=== PATIENT | female | born 1995 | race Caucasian/White ===

== ENCOUNTER → 2017-02-17 | Outpatient (CLI) | payer OTHER | LOC: MOB LAB 09:19 | PROVIDERS: ATTEND Family Medicine | DX: N91.2 Amenorrhea, unspecified (principal) | CPT/HCPCS: 36415; 84702 ==

== ENCOUNTER 2017-02-22 19:02 | Emergency (ER) | payer OTHER ==
[2017-02-22 19:22] VITALS: RESP 20; TEMP 97.6
--- NOTE | 2017-02-22 19:39 | EKG ---
[address] [address] Measurements Intervals [place] Rate: 77 P: 68 AR: 152 QRS: 75 QRSD: 117 T: 60 QT: 374 QTc: 405 Interpretive Statements SINUS RHYTHM INCOMPLETE RIGHT BUNDLE BRANCH BLOCK Compared to ECG 04/20/2016 15:09:05 Incomplete right bundle-branch block now present Electronically Signed On 02-23-17 13:30:27 MDT by Say Rosas [id number]
[2017-02-22 19:47] LABS: BASOPHILS # (AUTO) 0.02 10*3/UL; BASOPHILS % (AUTO) 0.2 % (0-1); EOSINOPHILS # (AUTO) 0.12 10*3/UL; EOSINOPHILS % (AUTO) 1.3 % (0-8); HEMATOCRIT 36.1 % (37.0-47.0); HEMOGLOBIN 12.1 g/dL (12.0-16.0); LYMPHOCYTES # (AUTO) 2.58 10*3/uL; MEAN CORPUSCULAR HEMOGLOBIN 29.5 PG (27-31); MEAN CORPUSCULAR HGB CONC 33.5 g/dL (33-37); MEAN PLATELET VOLUME 9.6 FL (7.4-12.2); MONOCYTES # (AUTO) 0.87 10*3/UL (0.3-0.8); MONOCYTES % (AUTO) 9.6 % (5-15); NEUTROPHILS # (AUTO) 5.45 10*3/UL; NEUTROPHILS % (AUTO) 60.2 % (50-80)
[2017-02-22] MEDS ORDERED: NORMAL SALINE 10 ML SYRINGE FLUSH IVP PRN (19:47)
[2017-02-22 19:48] LABS: PLATELET MORPHOLOGY COMMENT NORMAL MORPHOLOGY (NORM); RBC MORPHOLOGY COMMENT NORMAL MORPHOLOGY (NORM); WBC MORPHOLOGY COMMENT NORMAL MORPHOLOGY (NORM)
[2017-02-22 19:54] LABS: VENOUS PH 7.38 (7.32-7.42)
[2017-02-22 19:57] LABS: BLOOD UREA NITROGEN 16 mg/dL (7-22); CALCIUM 8.8 mg/dL (8.7-10.7); EST GLOMERULAR FILTRATION > 60 (>60 ml/min/1.73m(2)); SERUM ALBUMIN 3.9 g/dL (3.5-4.8)
--- NOTE | 2017-02-23 03:23 | PDOC ---
General Adult HPI - General Chief Complaint: General Medical Stated Complaint: Shortness of Breath/Dizziness/Early Date Seen by Provider: 02/22/17 Time Seen by Provider: 19:15 Source: POSITIVE: Patient Exam Limitations: POSITIVE: No limitations Nurse's Notes Reviewed & Considered: Yes - History of Present Illness Initial Comment: The patient is a 22-year-old female. She presents to the emergency room with a 10 day history of intermittent episodes of "my heart racing". She also states that she has had episodes of "numbness to my hands and face and shortness of breath". Her most recent episodes of these symptoms occurred today after a verbal altercation with her significant other. She states she is 5 weeks . She's had no abdominal pain or vaginal bleeding or discharge. No fevers or chills. No cough. She states she does have a history of anxiety for which she was taking Zoloft, and this has recently been discontinued. Have you received a tetanus shot in the past 10 years?: No Body Location Affected: REPORTS: Other (As above) Timing: REPORTS: Intermittent Duration: >1 week (Patient reports intermittent episodes for the past 10 days) Severity: Moderate Quality: REPORTS: Other (No pain anywhere) Context: REPORTS: Emotional stress Modifying Factors: worse with: Nothing, Analgesics, Antacids, Breathing, Coughing, Defecating, Vomiting, Eating, Exercise, Lying down, Urinating, Palpation, Movement, Rest, Upright Position, Walking, Remaining Still, Other Similar Symptoms Previously: Yes (history of anxiety as above) Recent Care Received: REPORTS: Denies Any Prior Injuries Related to Current Complaint?: No - Patient Home Medications Home Medications: Home Medications Acyclovir [Zovirax] 400 mg PO BID #60 tab 05/24/16 Sertraline HCl [Zoloft] 1 tab PO DAILY #30 tab 05/24/16 - Patient Allergies Allergies/Adverse Reactions: Allergies Allergy/AdvReac Type Severity Reaction Status Date / Time Penicillins Allergy Intermediate HIVES Verified 02/22/17 19:12 propoxyphene napsylate Allergy Mild Anaphylaxis Verified 02/22/17 19:12 [From Darvocet-N 100] cefaclor [From Ceclor] Allergy HIVES Verified 02/22/17 19:12 codeine Allergy HIVES Verified 02/22/17 19:12 propoxyphene Allergy HIVES Verified 02/22/17 19:12 Past Medical History - heen HEENT History: Denies History Cardiovascular History: Denies History Respiratory History: Denies History Gastrointestinal History: Denies History Genitourinary History: Denies History Endocrine History: Denies History Musculoskeletal History: Denies History Neurological History: Denies History Blood Disorders: Denies History Psychiatric History: Anxiety Disorders, Other (please comment) Additional Psychiatric History: AFTER SECOND DELIVERY History of Sexually Transmitted Diseases: Yes (Genital herpes) Female Reproductive History: Denies History LMP: 2016 Obstetrical History: Denies History : 3 Cancer History: Denies History In Past Year Been Physically Harmed or Verbally Threatened: No History of MDRO: No History of Other Communicable Diseases: No Tobacco Use: Former Smoker Alcohol Use: None Substance Use Type: None Previous Surgical History: No Significant Family History: Other (please comment) Additional Family History: Mother Cervical Cancer Past Medical History Reviewed: Reviewed - No Changes ROS - Limitations ROS Limitations: No Limitations Constitution: REPORTS: Denies Symptoms Cardiovascular: REPORTS: Heart Racing, Heart Palpitations Respiratory: REPORTS: Denies Resp Symptoms Neurological: REPORTS: Tingling (Hands and face) Gastrointestinal: REPORTS: Nausea (Morning sickness with nausea; no vomiting) Endocrine: REPORTS: Denies Symptoms Musculoskeletal: REPORTS: Denies MS Symptoms Genitourinary: REPORTS: Denies Symptoms Eyes: REPORTS: Denies Symptoms ENT: REPORTS: Denies Symptoms Skin: REPORTS: Denies Skin Symptoms Lympathic: REPORTS: Denies Lympathic Symptoms Immunologic: POSITIVE: Denies Symptoms Psychiatric: POSITIVE: Anxiety General Adult Exam - General Appearance General Appearance: POSITIVE: Alert, Cooperative, No Acute Distress, No Evidence of Trauma, Anxious - HEENT HEENT: POSITIVE: Head Inspection Nml, Eyes Inspection Nml, Ears Inspection Nml, Nose Inspection Nml, Oral/Dental Inspect. Nml, Pharynx Inspect. Nml, PERRL, EOMI - Pupils Pupil Size: 4 mm: Bilateral (PERRLA) - Neck Neck: POSITIVE: Normal Inspection, Thyroid Normal - Respiratory Respiratory: POSITIVE: No Respiratory Distress, Breath Sounds Normal, Chest Non- Tender - Cardiovascular Cardiovascular: POSITIVE: Regular Rate & Rhythm, No Murmur, No Gallop, PMI Normal Peripheral Pulses: Radial (R): 2+, Radial (L): 2+ - Abdomen Abdomen: Soft: (All Quadrants), Normal Bowel Sounds: (All Quadrants), Denies Tenderness: (All Quadrants), No Splenomegaly: (All Quadrants), No Hepatomegaly: (All Quadrants), No Guarding: (All Quadrants), No Rebound: (All Quadrants), No Palpable Pulse: (All Quadrants), No Palpabale Mass: (All Quadrants), No Distention: (All Quadrants), No Rigidity: (All Quadrants) - Back Back: POSITIVE: Normal Inspection - Skin Skin: POSITIVE: Normal Color, Warm, Dry, No Rash - Extremities Extremity: Non-Tender: (All Extremities), Normal ROM: (All Extremities), Normal Inspection: (All Extremities) - Neurological / Psychological Neurological: POSITIVE: 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, 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 Normal As Tested, Motor Normal, Sensation Normal, 5, 6 General Adult Progress - Results Reviewed by me Lab Results Reviewed: Yes (compensated respiratory alkalosis venous blood gas) Lab Results:: Laboratory Results 02/22/17 02/22/17 Range/Units 19:43 19:45 WBC 9.06 (4.8-10.8) 10^3/uL RBC 4.10 L (4.20-5.40) 10^6/uL Hgb 12.1 (12.0-16.0) g/dL Hct 36.1 L (37.0-47.0) % MCV 88.0 (81-99) FL MCH 29.5 (27-31) PG MCHC 33.5 (33-37) g/dL RDW Std Deviation 40.9 (39-50) fL RDW Coeff of Kerri 12.9 (11.5-14.5) % Plt Count 229 (140-350) 10*3/uL MPV 9.6 (7.4-12.2) FL Immature Gran % (Auto) 0.2 (0-5) % Neut % (Auto) 60.2 (50-80) % Lymph % (Auto) 28.5 (10-50) % Trigg % (Auto) 9.6 (5-15) % Eos % (Auto) 1.3 (0-8) % Baso % (Auto) 0.2 (0-1) % Immature Gran # (Auto) 0.02 10*3/UL Neut # (Auto) 5.45 10*3/UL Lymph # (Auto) 2.58 10*3/uL Trigg # (Auto) 0.87 H (0.3-0.8) 10*3/UL Eos # (Auto) 0.12 10*3/UL Baso # (Auto) 0.02 10*3/UL WBC Morphology Comment Normal morphology (NORM) Plt Morphology Comment Normal morphology (NORM) RBC Morph Comment Normal morphology (NORM) VBG pH 7.38 (7.32-7.42) VBG pCO2 40 L (45-55) mmHg VBG HCO3 23 (22-26) mmol/L VBG Base Excess -2 (-2-2) MMOL/L Sodium 138 (135-145) meq/L Potassium 3.7 L (3.8-5.2) meq/L Chloride 105 (98-112) meq/L Carbon Dioxide 22 L (23-33) meq/L Anion Gap 11 (5-20) BUN 16 (7-22) mg/dL Creatinine 0.8 (0.50-1.20) mg/dL Estimated GFR > 60 (>60 ml/min/1.73m(2)) BUN/Creatinine Ratio 20.00 (6-20) Glucose 79 (78-110) mg/dL Calculated Osmolality 285.0 (267-292) mOsm/kg Calcium 8.8 (8.7-10.7) mg/dL Total Bilirubin 0.3 (0.3-1.2) mg/dL AST 20 (8-39) IU/L ALT 18 (9-52) IU/L Alkaline Phosphatase 55 (38-126) IU/L Total Protein 6.9 (6.1-8.0) g/dL Albumin 3.9 (3.5-4.8) g/dL Globulin 2.9 (2.50-4.10) g/dL Albumin/Globulin Ratio 1.30 (1.3-2.0) mg/g All normal except for compensated EKG Interpreted/Reviewed By Me:: Yes (normal sinus rhythm; incomplete right bundle-branch block) EKG Interpretation:: POSITIVE: Normal Sinus Rhythm, Normal Rate, Normal Intervals, Normal [place], Normal ST/T, Abnormal EKG. 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 Patient fitted with a Holter monitor in the emergency room. Patient feels better on discharge. Status: POSITIVE: Improved, Re-Examined Antibiotics Given: No - Consult Counseled: POSITIVE: Patient, RE: Lab Results, RE: DX, RE: Need for F/U Patient Care Time - Estimated PCT Patient Care Time (In Minutes): 30 Vital Signs - Recent Vital Signs Vital Signs: Vital Signs (Last 8 hours) Pulse 02/22/17 19:35 70 - VS Reviewed Vital Signs Reviewed: Yes Discharge Clinical Impression: Anxiety, Rapid heart beat Discharge Disposition: Discharged to Home Condition: Stable Patient Instructions Given at Discharge: Anxiety (ED), Tachycardia (ED) Additional Instructions: Your electrocardiogram is normal. Your heart rate was completely normal while you are being monitored in the emergency room. Your blood tests are normal, except there is evidence that you might be hyperventilating, which would explain the numbness to your hands and face. I've asked that you be placed on a Holter monitor, to further investigate the symptom of rapid heart rate, which apparently occurs intermittently. When to have completed this test, please follow-up with your primary care provider. Return here anytime if condition worsens in any way. Follow Up With: DAYAMI GUADALUPE [Primary Care Provider] - (Instructions as above. Holter monitor as above. Return here anytime if condition worsens. Follow-up with your primary care provider after the Holter monitor test is done.)
--- NOTE | 2017-02-25 14:12 | HOLTER ---
[facility] Interpretive Statements All 110 Diary entries were marked as small med or large spikes. THere are 2 exceptions which are labled Black out. [id number]
== END 2017-02-22 21:10 | disposition home or self-care (01) ==
LOC: ER 19:02
DX: O26.891 Other specified pregnancy related conditions, first trimester (principal); F41.9 Anxiety disorder, unspecified
CPT/HCPCS: 36415; 80053; 82803; 85025; 93005; 93010; 93225; 93226; 93227; 99284

== ENCOUNTER → 2017-03-22 | Outpatient (CLI) | payer OTHER ==
[2017-03-22 11:23] LABS: BASOPHILS # (AUTO) 0.02 10*3/UL; BASOPHILS % (AUTO) 0.2 % (0-1); EOSINOPHILS # (AUTO) 0.04 10*3/UL; EOSINOPHILS % (AUTO) 0.5 % (0-8); HEMOGLOBIN 12.9 g/dL (12.0-16.0); LYMPHOCYTES # (AUTO) 1.81 10*3/uL; MEAN CORPUSCULAR HEMOGLOBIN 29.6 PG (27-31); MEAN CORPUSCULAR HGB CONC 33.9 g/dL (33-37); MEAN CORPUSCULAR VOLUME 87.2 FL (81-99); MONOCYTES # (AUTO) 0.76 10*3/UL (0.3-0.8); MONOCYTES % (AUTO) 8.6 % (5-15); NEUTROPHILS # (AUTO) 6.22 10*3/UL; RED BLOOD COUNT 4.36 10^6/uL (4.20-5.40)
[2017-03-22 11:24] LABS: PLATELET MORPHOLOGY COMMENT NORMAL MORPHOLOGY (NORM); RBC MORPHOLOGY COMMENT NORMAL MORPHOLOGY (NORM); WBC MORPHOLOGY COMMENT NORMAL MORPHOLOGY (NORM)
[2017-03-22 11:47] LABS: BILIRUBIN,URINE NEGATIVE (NEG); COLOR,URINE YELLOW; GLUCOSE, URINE (UA) NEGATIVE (NEG); NITRATE,URINE NEGATIVE (NEG); OCCULT BLOOD,URINE NEGATIVE (NEG); PROTEIN,URINE NEGATIVE (NEG); UROBILINOGEN,URINE 0.2 mg/dL (0.2)
[2017-03-22 12:11] LABS: CLARITY,URINE CLEAR (CLEAR)
[2017-03-22 12:12] LABS: BACTERIA,URINE RARE; RBC,URINE 0-1 /hpf; SQUAMOUS EPITHELIAL CELL,UR RARE; URINE SAMPLE TYPE CLEAN CATCH URINE; WBC,URINE 0-1
[2017-03-22 12:35] LABS: HIV ANTIBODY NEGATIVE (N); HIV-1 P24 ANTIGEN NEGATIVE (N)
[2017-03-24 13:31] LABS: HEP B SURFACE AG Negative (Negative)
== END ==
LOC: US 10:00
PROVIDERS: ATTEND Obstetrics & Gynecology
DX: Z36 Encounter for antenatal screening of mother (principal)
CPT/HCPCS: 36415; 80081; 81001; 86900; 86901; 87088; 87491; 87591

== ENCOUNTER → 2017-05-17 | Outpatient (CLI) | payer OTHER ==
--- NOTE | 2017-05-18 09:24 | DI ---
US OB TRANSVAGINAL,05/17/2017 1:06 PM: Clinical History: Pelvic pressure in the second trimester. Previous Exam: March 04, 2015 Findings: Multiple transvaginal grayscale and color Doppler sonographic images are obtained through the pelvis. The cervix was long measuring an average of 4.8 cm. On some images, there appears to be a trace amou nt of fluid within the cervix. On Valsalva, the cervix measured 4.5 cm in length. Impression: Cervix long and closed measuring 4.8 cm in length.
== END ==
LOC: US 12:59
PROVIDERS: ATTEND Obstetrics & Gynecology
DX: O26.892 Other specified pregnancy related conditions, second trimester (principal); R10.2 Pelvic and perineal pain; Z3A.17 17 weeks gestation of pregnancy
CPT/HCPCS: 76817

== ENCOUNTER → 2017-05-17 | Outpatient (CLI) | payer OTHER ==
[2017-05-18 14:41] LABS: GESTIONAL AGE FOR RISK ESTIMAT Dates estimate (())
[2017-05-19 08:00] LABS: INHIBIN SEE COMMENTS (())
== END ==
LOC: MOB LAB 11:43
PROVIDERS: ATTEND Obstetrics & Gynecology
DX: Z36 Encounter for antenatal screening of mother (principal); Z3A.17 17 weeks gestation of pregnancy
CPT/HCPCS: 36415; 81511

== ENCOUNTER → 2017-06-16 | Outpatient (CLI) | payer OTHER ==
--- NOTE | 2017-06-16 21:29 | DI ---
OBSTETRICAL ULTRASOUND, 06/16/2017 11:44 AM: Clinical History: Antepartum screening. Previous Exam: 05/17/2017 (for cervical length measurement). ADJUSTED DATE FROM EARLY OBUS: 01/18/2017. There is a single live IUP currently in vertex presentation. Amnionic fluid content is normal. activity is observed as follows: cardiac, extremity, and respiratory. The placenta is anterior corpus and Grade 1. heart rate is 146 beats/minute and regular. There is a 3 vessel cord. The RVOT, L VOT and 4 chamber heart view are normal. The aortic arch and descending aorta are normal. Views of th e spine, face, and kidneys are unremarkable. BPD, HC, AC, and FL measurements are 51 mm, 200 mm , 172 mm, and 36 mm, respectively. These measurements correspond to EGA values of 21 weeks 4 days, 22 weeks 2 days, 22 weeks 2 days and 21 weeks 3 days, respectively. Composite EGA is 22 weeks 0 days. T he US EDC is 10/20/2017. EDC by adjusted LMP is 10/25/2017. Readin. Single live fetus with vertex presentation and normal amniotic fluid content. Placenta is anterio r corpus and grade 1. 2. The composite EGA is 22 weeks 0 days with an ultrasound EDC of 10/20/2017. Based on the adjusted LMP date of 01/18/2017, the EDC would be 10/25/2017. 3. Anatomic survey is complete and normal.
== END ==
LOC: US 12:38
PROVIDERS: ATTEND Obstetrics & Gynecology
DX: Z36 Encounter for antenatal screening of mother (principal); Z3A.21 21 weeks gestation of pregnancy
CPT/HCPCS: 76805

== ENCOUNTER → 2017-07-08 | Outpatient (CLI) | payer OTHER | LOC: LAB 12:25 | PROVIDERS: ATTEND Obstetrics & Gynecology | DX: Z36 Encounter for antenatal screening of mother (principal); Z3A.24 24 weeks gestation of pregnancy | CPT/HCPCS: 36415; 82950 ==